=== PATIENT | female | born 1985 | race Caucasian/White ===

== ENCOUNTER 2020-11-07 17:31 | Emergency (ER) | payer OTHER ==
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
[2020-11-07 18:54] LABS: Urine Blood NEGATIVE (NEG); Urine Glucose NEGATIVE (NEG); Urine Protein NEGATIVE (NEG)
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
[2020-11-07] MEDS ORDERED: ACETAMINOPHEN 500 MG TAB ONE (21:42)
[2020-11-07 21:43] VITALS: BP 119/89; O2SAT 100
== END 2020-11-07 21:35 | disposition home or self-care (01) ==
LOC: ER 17:31
DX: S70.02XA Contusion of left hip, initial encounter (principal); S30.1XXA Contusion of abdominal wall, initial encounter; F41.9 Anxiety disorder, unspecified; V43.52XA Car driver injured in collision with other type car in traffic accident, initial encounter; Y93.9 Activity, unspecified; Y92.9 Unspecified place or not applicable; Z88.2 Allergy status to sulfonamides; Z88.1 Allergy status to other antibiotic agents
CPT/HCPCS: 70450; 71250; 72125; 81003; 81025; 99284